=== PATIENT | male | born 1965 | race Caucasian/White ===

== ENCOUNTER 2021-02-28 23:49 | Inpatient (IN) | payer BC ==
--- NOTE | 2021-03-01 00:29 | EDM.PDOC ---
ED HPI GENERAL MEDICAL PROBLEM - General Chief Complaint: Abdominal Pain Stated Complaint: ABD PAIN Time Seen by Provider: 03/01/21 00:25 Source of Information: Reports: Patient History Limitations: Reports: No Limitations - History of Present Illness INITIAL COMMENTS - FREE TEXT/NARRATIVE: 55-year-old male with worsening abdominal pain over the past 5 to 7 days, now running a fever and his pain is localized to the right side of his abdomen. Yesterday it seemed worse, this morning it was a little better but tonight he tried to work and it was too painful. No nausea or vomiting, no bowel changes. He had a hernia surgery with laparoscopy 3 or 4 years ago. Otherwise healthy. Onset: Gradual Duration: Day(s): (Worsening for 5 to 7 days) Location: Reports: Abdomen (Especially the lower abdomen on the right side) Quality: Reports: Pressure, Sharp, Stabbing Worsens with: Reports: Movement Associated Symptoms: Reports: Fever/Chills, Loss of Appetite, Malaise. Denies: Confusion, Chest Pain, Nausea/Vomiting, Shortness of Breath Right Lower Abdomen Pain Score (Numeric/FACES): 6 - Related Data Allergies Allergy/AdvReac Type Severity Reaction Status Date / Time No Known Allergies Allergy Verified 03/01/21 02:14 Home Meds: Home Meds lisinopriL [Lisinopril] 1 tab PO ASDIRECTED 03/01/21 [History] Social & Family History - Tobacco Use Tobacco Use Status *Q: Current Every Day Tobacco User Years of Tobacco use: 30 Packs/Tins Daily: 1 ED ROS GENERAL - Review of Systems Review Of Systems: See Below Constitutional: Reports: Fever, Chills, Malaise HEENT: Reports: No Symptoms Respiratory: Reports: No Symptoms Cardiovascular: Reports: No Symptoms GI/Abdominal: Reports: Abdominal Pain, Decreased Appetite. Denies: Constipation, Diarrhea : Reports: No Symptoms Musculoskeletal: Reports: No Symptoms Skin: Reports: No Symptoms Neurological: Reports: No Symptoms Psychiatric: Reports: No Symptoms ED EXAM, GI/ABD - Physical Exam Exam: See Below Exam Limited By: No Limitations General Appearance: Alert, No Apparent Distress, Other (Patient looks uncomfortable but not distressed) Eyes: Bilateral: Normal Appearance (No jaundice) Head: Atraumatic Neck: Supple, Non-Tender Respiratory/Chest: Lungs Clear Cardiovascular: Regular Rate, Rhythm, Tachycardia (Mild tachycardia) GI/Abdominal Exam: Tender (Very tender to palpation especially in the right lower quadrant, mild to moderate guarding equivocal rebound tenderness), Abnormal Bowel Sounds (Decreased bowel sounds) Extremities: Normal Inspection Neurological: Alert, Oriented Psychiatric: Normal Affect, Normal Mood Skin Exam: Warm, Dry Course - Vital Signs Last Recorded V/S: Last Vital Signs Temp 98.6 F 03/01/21 02:07 Pulse 92 03/01/21 02:07 Resp 16 03/01/21 02:07 BP 135/82 03/01/21 02:07 Pulse Ox 97 03/01/21 02:07 - Orders/Labs/Meds Orders: Active Orders 24 hr Category Date Time Status Piperacillin/Tazobactam [Zosyn] 4.5 gm Med 03/01/21 01:30 Active Sodium Chloride 0.9% [Normal Saline AdvBag] 50 ml IV ONETIME Sodium Chloride 0.9% [Normal Saline] 1,000 ml Med 03/01/21 01:15 Active IV ASDIRECTED Isolation [COMM] Stat Oth 03/01/21 00:29 Ordered Medication Orders Diphenhydramine HCl (Diphenhydramine 25 Mg Cap) 25 - 50 mg PO Q4H PRN PRN Reason: Itching Fentanyl (Fentanyl 100 Mcg/2 Ml Sdv) 10 - 30 mcg IVPUSH Q1H PRN PRN Reason: Pain (severe 7-10) Sodium Chloride (Normal Saline) 1,000 mls @ 500 mls/hr IV ASDIRECTED [facility] Last Admin: 03/01/21 01:19 Dose: 500 mls/hr Documented by: FITZASH Piperacillin Sod/Tazobactam (Sod 4.5 gm/ Sodium Chloride) 50 mls @ 100 mls/hr IV ONETIME [facility] Last Admin: 03/01/21 01:34 Dose: 100 mls/hr Documented by: FITZASH Sodium Chloride (Normal Saline) 1,000 mls @ 125 mls/hr IV ASDIRECTED [facility] Last Admin: 03/01/21 03:45 Dose: 125 mls/hr Documented by: REYNA Miscellaneous Information (Remove Patch) 1 ea TRDERM Q24H [facility] Morphine Sulfate (Morphine 2 Mg/Ml Syringe) 1 - 3 mg IVPUSH Q1H PRN PRN Reason: Abdominal Pain Nicotine (Nicotine 14 Mg/24 Hr Patch) 14 mg TRDERM DAILY PRN PRN Reason: Other Ondansetron HCl (Ondansetron 4 Mg/2 Ml Sdv) 4 mg IVPUSH Q8H PRN PRN Reason: Nausea/Vomiting Promethazine HCl (Promethazine 25 Mg/Ml Sdv) 12.5 - 25 mg IV Q8H PRN PRN Reason: Nausea/Vomiting Scopolamine (Scopolamine 1.5 Mg Transdermal Patch) 1.5 mg TOP ONETIME PRN PRN Reason: Nausea Labs: Laboratory Tests 03/01/21 03/01/21 03/01/21 Range/Units 00:29 00:40 00:40 WBC 14.3 H (4.5-11.0) K/uL RBC 4.71 (4.30-5.90) M/uL Hgb 14.9 (12.0-15.0) g/dL Hct 42.5 (40.0-54.0) % MCV 90 (80-98) fL MCH 32 H (27-31) pg MCHC 35 (32-36) % Plt Count 230 (150-400) K/uL Neut % (Auto) 79.0 H (36-66) % Lymph % (Auto) 11.6 L (24-44) % Garden % (Auto) 9.1 H (2-6) % Eos % (Auto) 0.1 L (2-4) % Baso % (Auto) 0.2 (0-1) % Sodium 136 L (140-148) mmol/L Potassium 3.2 L (3.6-5.2) mmol/L Chloride 101 (100-108) mmol/L Carbon Dioxide 25 (21-32) mmol/L Anion Gap 13.2 (5.0-14.0) mmol/L BUN 21 H (7-18) mg/dL Creatinine 1.2 (0.8-1.3) mg/dL Est Cr Clr Drug Dosing 74.95 mL/min Estimated GFR (MDRD) > 60 (>60) Glucose 98 (74-106) mg/dL Calcium 8.1 L (8.5-10.1) mg/dL Total Bilirubin 0.7 (0.2-1.0) mg/dL AST 14 L (15-37) U/L ALT 26 (12-78) U/L Alkaline Phosphatase 59 (46-116) U/L Total Protein 7.1 (6.4-8.2) g/dL Albumin 3.2 L (3.4-5.0) g/dL Globulin 3.9 H (2.3-3.5) g/dL Albumin/Globulin Ratio 0.8 L (1.2-2.2) Influenza Type A RNA Negative (NEGATIVE) RSV RNA (INAAT) Negative (NEGATIVE) Influenza Type B RNA Negative (NEGATIVE) SARS-CoV-2 RNA (REGAN) Negative (NEGATIVE) Meds: Medications Generic Name Dose Route Start Last Admin Trade Name Freq PRN Reason Stop Dose Admin Diphenhydramine HCl 25 - 50 mg 03/01/21 02:20 Diphenhydramine 25 Mg Cap PO Q4H PRN Itching Fentanyl 10 - 30 mcg 03/01/21 02:24 Fentanyl 100 Mcg/2 Ml Sdv IVPUSH Q1H PRN Pain (severe 7-10) Sodium Chloride 1,000 mls @ 500 mls/hr 03/01/21 01:15 03/01/21 01:19 Normal Saline IV 500 mls/hr ASDIRECTED TATIANNA Administration Piperacillin Sod/Tazobactam 50 mls @ 100 mls/hr 03/01/21 01:30 03/01/21 01:34 Sod 4.5 gm/ Sodium Chloride IV 100 mls/hr ONETIME TATIANNA Administration Sodium Chloride 1,000 mls @ 125 mls/hr 03/01/21 02:30 03/01/21 03:45 Normal Saline IV 125 mls/hr ASDIRECTED TATIANNA Administration Miscellaneous Information 1 ea 03/01/21 21:00 Remove Patch TRDERM Q24H TATIANNA Morphine Sulfate 1 - 3 mg 03/01/21 02:22 Morphine 2 Mg/Ml Syringe IVPUSH Q1H PRN Abdominal Pain Nicotine 14 mg 03/01/21 02:21 Nicotine 14 Mg/24 Hr Patch TRDERM DAILY PRN Other Ondansetron HCl 4 mg 03/01/21 02:19 Ondansetron 4 Mg/2 Ml Sdv IVPUSH Q8H PRN Nausea/Vomiting Promethazine HCl 12.5 - 25 mg 03/01/21 02:20 Promethazine 25 Mg/Ml Sdv IV Q8H PRN Nausea/Vomiting Scopolamine 1.5 mg 12/21/21 02:19 Scopolamine 1.5 Mg Transdermal Patch TOP ONETIME PRN Nausea - Re-Assessments/Exams Free Text/Narrative Re-Assessment/Exam: 03/01/21 00:55 CBC and CMP along with Covid testing was obtained, patient will get an abdomen and pelvis CT scan. 03/01/21 01:19 White count was elevated at 14,300, CT findings are below. IMPRESSION: 1. Acute appendicitis without findings to suggest perforation. 2. Nonobstructing renal calculi. 3. No other CT abnormality in the abdomen or pelvis within limitations of lack of IV contrast. Findings were discussed with Dr. Paul on 03/01/2021 at 1:12 a.m. Above findings were discussed with Dr. Gordon and the patient. An IV was started and he was bolused with normal saline, and given 4.5 g of Zosyn IV. He will be admitted to the surgical service. 03/01/21 06:04 Covid was negative, patient will be admitted to the surgical floor. Departure - Departure Time of Disposition: 02:22 Disposition: Admitted As Inpatient 67 Clinical Impression: Abdominal pain Qualifiers: Abdominal location: right lower quadrant Qualified Code(s): R10.31 - Right lower quadrant pain Appendicitis Qualifiers: Appendicitis type: acute appendicitis Acute appendicitis type: with localized peritonitis Appendicitis gangrene presence: without gangrene Appendicitis perforation presence: without perforation Appendicitis abscess presence: without abscess Qualified Code(s): K35.30 - Acute appendicitis with localized peritonitis, without perforation or gangrene - Discharge Information Sepsis Event Note (ED) - Evaluation Sepsis Screening Result: Possible Sepsis Risk - Focused Exam Vital Signs: Vital Signs Temp Pulse Resp BP Pulse Ox 03/01/21 00:17 101.0 F H 104 H 16 150/88 H 97 - My Orders Last 24 Hours: My Active Orders 03/01/21 00:29 Isolation [COMM] Stat 03/01/21 01:15 Sodium Chloride 0.9% [Normal Saline] 1,000 ml IV ASDIRECTED 03/01/21 01:30 Piperacillin/Tazobactam [Zosyn] 4.5 gm Sodium Chloride 0.9% [Normal Saline AdvBag] 50 ml IV ONETIME - Assessment/Plan Last 24 Hours: My Active Orders 03/01/21 00:29 Isolation [COMM] Stat 03/01/21 01:15 Sodium Chloride 0.9% [Normal Saline] 1,000 ml IV ASDIRECTED 03/01/21 01:30 Piperacillin/Tazobactam [Zosyn] 4.5 gm Sodium Chloride 0.9% [Normal Saline AdvBag] 50 ml IV ONETIME
[2021-03-01] MEDS ORDERED: Sodium Chloride 0.9% 1,000 ML IV SCH ×2 (01:15→02:30)
--- NOTE | 2021-03-01 01:15 | CRLCT ---
For Patients: As a result of the Century Cures Act, medical imaging exams and procedure reports are released immediately into your electronic medical record. You may view this report before your referring provider. If you have questions, please contact your health care provider. INDICATION: Abdominal pain. TECHNIQUE: CT abdomen and pelvis without contrast. COMPARISON: None. FINDINGS: Lower chest: Irregular linear opacities with associated bronchiectasis in the right middle and lower lobes is suggestive of scarring. Liver: Decreased attenuation of the liver suggestive of fatty infiltration. Unremarkable within limitations of lack of IV contrast. Gallbladder and bile ducts: Layering high attenuation material could be sludge. No wall thickening or pericholecystic fluid. Pancreas: Unremarkable. No mass or inflammation. Spleen: Normal in size. No masses. Adrenal glands: Normal in size. No nodules. Kidneys: Small bilateral nonobstructing renal calculi. No hydronephrosis on either side. GI tract: The appendix is enlarged with wall thickening and adjacent periappendiceal stranding. Numerous scattered diverticula project from the colon, without findings to suggest diverticulitis. Bowel loops are normal in caliber. Vasculature: Unremarkable. Lymph nodes: No lymphadenopathy. Abdominal wall/Omentum/Peritoneum: Unremarkable. No sign of mass or infiltration. No free air or significant free fluid. Fat containing bilateral inguinal hernias. Pelvis: Unremarkable. No pelvic masses. Bones: Mild degenerative changes. No aggressive appearing lytic or blastic lesions. IMPRESSION: 1. Acute appendicitis without findings to suggest perforation. 2. Nonobstructing renal calculi. 3. No other CT abnormality in the abdomen or pelvis within limitations of lack of IV contrast. Findings were discussed with Dr. Paul on 03/01/2021 at 1:12 a.m. Please note that all CT scans at this facility use dose modulation, iterative reconstruction, and/or weight-based dosing when appropriate to reduce radiation dose to as low as reasonably achievable. Dictated by Indio Vences MD @ 03/01/2021 1:13:33 AM (Electronically Signed)
[2021-03-01 01:22] LABS: CORONAVIRUS COVID-19 NAA NEGATIVE (NEGATIVE)
[2021-03-01] MEDS ORDERED: Piperacillin/Tazobactam 4.5 GM in Sodium Chloride 0.9% 50 ML IV SCH (01:30)
[2021-03-01] MEDS ORDERED: Scopolamine 1.5 MG Transdermal Patch TOP PRN (02:19)
[2021-03-01] MEDS ORDERED: Ondansetron 4 MG/2 ML SDV IVPUSH PRN (02:19)
[2021-03-01] MEDS ORDERED: diphenhydrAMINE 25 MG Cap PO PRN (02:20)
[2021-03-01] MEDS ORDERED: Promethazine 25 MG/ML SDV IV PRN (02:20)
[2021-03-01] MEDS ORDERED: Nicotine 14 MG/24 Hr Patch TRDERM PRN (02:21)
[2021-03-01] MEDS ORDERED: Morphine 2 MG/ML SYRINGE IVPUSH PRN (02:22)
[2021-03-01] MEDS ORDERED: fentaNYL 100 MCG/2 ML SDV IVPUSH PRN ×2 (02:24→07:05)
[2021-03-01] MEDS ORDERED: Piperacillin/Tazobactam 3.375 GM in Sodium Chloride 0.9% 50 ML IV SCH (06:30)
[2021-03-01] MEDS ORDERED: Bupivacaine 0.5%/EPINEPHrine 1:200,000 50 ML MDV ONE (06:34)
[2021-03-01] MEDS ORDERED: Succinylcholine 200 MG/10 ML MDV ONE (06:42)
[2021-03-01] MEDS ORDERED: Ondansetron 4 MG/2 ML SDV ONE (06:42)
[2021-03-01] MEDS ORDERED: Rocuronium 50 MG/5 ML Vial ONE (06:42)
[2021-03-01] MEDS ORDERED: Dexamethasone 4 MG/ML SDV ONE (06:42)
[2021-03-01] MEDS ORDERED: Propofol 200 MG/20 ML SDV ONE (06:42)
[2021-03-01] MEDS ORDERED: Glycopyrrolate 0.2 MG/ML 5 ML MDV ONE (06:42)
[2021-03-01] MEDS ORDERED: fentaNYL 250 MCG/5 ML SDV ONE (06:42)
[2021-03-01] MEDS ORDERED: Neostigmine Methylsulfate 1 MG/ML 5 ML Syringe ONE (06:42)
[2021-03-01] MEDS ORDERED: Docusate Sodium 100 MG Cap PO PRN (07:04)
[2021-03-01] MEDS ORDERED: Acetaminophen/HYDROcodone 325-5 MG Tab PO PRN (07:04)
[2021-03-01] MEDS ORDERED: Benzocaine/Cetylpyridinium/Menthol Lozenge MUCMEM PRN (07:04)
[2021-03-01] MEDS ORDERED: hydrOXYzine HCL 100 MG/2 ML SDV IM PRN (07:04)
[2021-03-01] MEDS ORDERED: Zolpidem 5 MG Tab PO PRN (07:04)
[2021-03-01] MEDS ORDERED: fentaNYL 100 MCG/2 ML SDV ONE (07:26)
[2021-03-01] MEDS ORDERED: Ketorolac 30 MG/ML SDV ONE (07:34)
--- NOTE | 2021-03-01 07:42 | CONS ---
DATE OF SERVICE: 03/01/2021 REFERRING PHYSICIAN: CONSULTING PHYSICIAN: Pito Gordon MD REASON FOR CONSULTATION: Abdominal pain. HISTORY OF PRESENT ILLNESS: This is a pleasant 55-year-old male who has worsening abdominal pain over the last 5 to 7 days. This was located in the right lower quadrant. No nausea, vomiting, shortness of breath, or chest pain. PAST SURGICAL HISTORY: Inguinal hernia repair. SOCIAL HISTORY: He does smoke. FAMILY HISTORY: Noncontributory. REVIEW OF SYSTEMS: GENERAL: Appropriate for condition. HEENT: No symptoms. RESPIRATORY: Smoker. CARDIOVASCULAR: Smoker. GI: As above. GENITOURINARY: No abnormalities. MUSCULOSKELETAL: No abnormality SKIN: No abnormalities. NEUROLOGICAL: No symptoms. PSYCH: No symptoms. The remainder of review of systems reviewed and is negative. PHYSICAL EXAMINATION: GENERAL: The patient is appropriate for condition. VITAL SIGNS: Stable. HEENT: Pupils are equal. NECK: Supple. LUNGS: Clear. CARDIOVASCULAR: Regular rhythm and rate. RESPIRATORY: Lungs are clear to auscultation bilaterally. ABDOMEN: Mild pain in right lower quadrant. No rebound. No guarding. EXTREMITIES: Full range of motion. NEUROLOGIC: Oriented x3. PSYCH: No gross depression. IMAGING: I did review which shows acute appendicitis on the CT scan. White blood cell count is elevated at 14,000. Creatinine is normal 1.2. ASSESSMENT: Appendicitis. PLAN: The patient will undergo laparoscopic appendectomy. We discussed risks, benefits, alternatives, and limitations including, but not limited to infection, bleeding, perforation of abdominal structures, injury to bowel or bladder, chronic wounds, chronic pain, requirement of reoperation, and other risks not listed here were explained to the patient, and he wished to proceed. Pito Gordon MD /[id number]
[2021-03-01] MEDS ORDERED: Sugammadex Sodium 200 MG/2 ML VIAL ONE (07:51)
--- NOTE | 2021-03-01 08:23 | OR ---
DATE OF PROCEDURE: 03/01/2021 SURGEON: Pito Gordon MD PROCEDURES: 1. Transversus abdominis plane blocks bilaterally. 2. Rectus sheath blocks bilaterally. COMPLICATION: None. PLATFORM MATERIAL HANDLER MANAGER: None. RISKS: Risks, benefits, alternatives, and limitations including, but not limited to, infection; bleeding; and injury to abdominal structures were explained to the patient and wished to proceed. DESCRIPTION OF PROCEDURE: The patient was placed in supine position. The left transversus plane was identified first. This was accessed using 21-gauge needle using 13 MHz ultrasound probe. 20% of the solution was then injected. This was repeated on the other side. Bilateral rectus sheaths were then injected under direct visualization. 20% of the solution was injected in each of these respectively. All 4 procedures were performed in the same manner, same fashion, same technique, and same sequence using the same equipment. The patient tolerated the procedure well. Pito Gordon MD /[id number]
--- NOTE | 2021-03-01 08:23 | OR ---
DATE OF PROCEDURE: 03/01/2021 SURGEON: Pito Gordon MD PROCEDURE: Laparoscopic appendectomy. FINDINGS: Appendicitis, nonruptured. COMPLICATIONS: None. LIBRARY CONSULTANT: None. ANESTHESIA: General. RISKS: Risks, benefits, alternatives, and limitations including, but not limited to, infection; bleeding; perforation of abdominal structures such as bowel, bladder, and others not listed were explained to the patient along with abscess, possibility of open surgery, and other risks not listed here were all explained to the patient, and they wished to proceed. PROCEDURE IN DETAIL: The patient was placed in supine position. A supraumbilical curvilinear incision was made. A Veress needle was used to enter the abdomen without abnormality. A drop test was performed without abnormality. The abdomen was subsequently insufflated. Two additional 5 mm ports were entered under direct visualization. No evidence of enterotomy or injury was noted. The appendix was readily identified. This was consistent with appendicitis. This was not ruptured. There was no peritonitis. There was no abscess. The appendix was mobilized and transected with a palma load stapler. This was delivered through the umbilical port using a bag system. The abdomen was re-insufflated. The abdomen was irrigated with 1 L of irrigation. The liquid was removed. Pressure was dropped to 7. No abnormal bleeding was noted. The air was removed. The wounds were closed with 3-0 Vicryl and 4-0 Vicryl in interrupted running fashion. The patient tolerated the procedure well. Pito Gordon MD /[id number]
[2021-03-01] MEDS: Piperacillin/Tazobactam/Dext 3.375 GM in Premix Bag 1 BAG IV SCH ×2 (12:45→17:30)
[2021-03-02] MEDS: Piperacillin/Tazobactam/Dext 3.375 GM in Premix Bag 1 BAG IV SCH ×5 (00:11→23:48)
[2021-03-03] MEDS: Piperacillin/Tazobactam/Dext 3.375 GM in Premix Bag 1 BAG IV SCH (05:14)
--- NOTE | 2021-03-03 10:32 | DISCH ---
SUMMARY OF HOSPITAL COURSE: A pleasant 55-year-old male who underwent a laparoscopic appendectomy. The patient did well. Prior to discharge, his white blood cell count was essentially normal. He had no fever for greater than 48 hours. He was tolerating diet and has very minimal pain. No nausea, vomiting, shortness of breath, or chest pain. FOLLOWUP: With Surgery in 7 to 14 days. DISCHARGE MEDICATIONS: Please see MAR. ACTIVITY: No lifting greater than 30 pounds for 2 weeks. COMPLICATIONS DURING THIS HOSPITALIZATION: None. ADDITIONAL CONSULTATIONS DURING THIS HOSPITALIZATION: None. /[id number]
--- NOTE | 2021-03-03 11:13 | PN ---
DATE OF SERVICE: 03/03/2021 SUBJECTIVE: The patient is doing well. Pain is well controlled. No nausea, vomiting, shortness of breath, or chest pain. White blood cell count has decreased by 50%. OBJECTIVE: VITAL SIGNS: Stable. CARDIOVASCULAR: Regular rhythm and rate. RESPIRATORY: Lungs clear to auscultation bilaterally. SKIN: Incision healing well. ASSESSMENT: Status post laparoscopic appendectomy. PLAN: The patient will be discharged today. Please see discharge summary for further details. Pito Gordon MD /[id number]
== END 2021-03-03 09:30 | disposition home or self-care (01) | DRG 225 ==
LOC: JP.ED 23:49 → JP.MS 03-01 01:30
PROVIDERS: ADMIT Surgery; ATTEND Surgery
PROC: 0DTJ4ZZ Resection of Appendix, Percutaneous Endoscopic Approach (ICD-10-PCS; principal; 2021-03-01)
DX: K35.30 Acute appendicitis with localized peritonitis, without perforation or gangrene (principal); F17.210 Nicotine dependence, cigarettes, uncomplicated; Z20.822 Contact with and (suspected) exposure to COVID-19
CPT/HCPCS: 0241U; 36415; 74176; 80053; 85025; 85027; 87070; 87075; 87186; 87205; 96365; 99285-25; J0171; J0330; J1100; J1885; J2405; J2543; J2704; J2710; J2795; J3010; J3490; J7030